=== PATIENT | female | born 1975 | race Caucasian/White ===

== ENCOUNTER 2019-04-29 18:28 | Emergency (ER) | payer OTHER ==
[2019-04-29 18:34] VITALS: TEMP 98.3
--- NOTE | 2019-04-29 19:32 | XR ---
EXAMINATION TYPE: XR knee complete RT DATE OF EXAM: 04/29/2019 COMPARISON: NONE HISTORY: Pain TECHNIQUE: 3 views FINDINGS: I see no fracture nor dislocation. Joint spaces are fairly normal. There is no sign of knee joint effusion. IMPRESSION: Negative right knee exam.
--- NOTE | 2019-04-29 19:42 | ED ---
Extremity Problem HPI - General Chief complaint: Extremity Problem,Nontraumatic Stated complaint: RT leg pain Time Seen by Provider: 04/29/19 19:00 Source: patient Mode of arrival: wheelchair Limitations: no limitations - History of Present Illness Initial comments: Patient is a 44-year-old female presenting to the emergency Department with complaints of right knee pain 2 days. Patient states the pain is increasing over the last few days. Patient denies any trauma or falls to the right knee. Patient states no previous history of surgeries or injuries to the right knee. Patient describes the pain as an left front of her knee and she is unable to bend the knee. Patient is also complaining of a sore inside the her bottom lip. She states she recently had cavities filled and ever since then the inside of her lip has been hurting. Patient states she noticed a small sore there today as well. - Related Data Previous Rx's Medication Instructions Recorded Ibuprofen 600 mg PO Q8HR PRN 5 Days #20 04/29/19 tablet Lidocaine Viscous 2% [Xylocaine 5 ml MUCOUS MEM Q4-6H PRN 5 Days 04/29/19 Viscous] #50 ml Allergies Allergy/AdvReac Type Severity Reaction Status Date / Time No Known Allergies Allergy Verified 04/29/19 18:34 Review of Systems ROS Statement: Those systems with pertinent positive or pertinent negative responses have been documented in the HPI. ROS Other: All systems not noted in ROS Statement are negative. Past Medical History Past Medical History: Diabetes Mellitus, Thyroid Disorder History of Any Multi-Drug Resistant Organisms: None Reported Past Surgical History: Cholecystectomy Past Psychological History: No Psychological Hx Reported Smoking Status: Never smoker Past Alcohol Use History: None Reported Past Drug Use History: None Reported General Exam - General Exam Comments Initial Comments: GENERAL: Well-appearing, well-nourished and in no acute distress. HEAD: Atraumatic, normocephalic. EYES: Pupils equal round and reactive to light, extraocular movements intact, sclera anicteric, conjunctiva are normal. ENT: TMs normal, nares patent, oropharynx clear without exudates. Moist mucous membranes. There is a small skin tear on the inside of the bottom lip. NECK: Normal range of motion, supple without lymphadenopathy or JVD. LUNGS: Breath sounds clear to auscultation bilaterally and equal. No wheezes rales or rhonchi. HEART: Regular rate and rhythm without murmurs, rubs or gallops. ABDOMEN: Soft, nontender, normoactive bowel sounds. No guarding, no rebound. No masses appreciated. : Deferred EXTREMITIES: Patient is unable to flex right knee. Pain to palpation on the anterior aspect of the knee, from the tibia tuberosity up to the quadricep muscle. No erythema or signs of infection. NEUROLOGICAL: Cranial nerves II through XII grossly intact. Normal speech, normal gait. PSYCH: Normal mood, normal affect. SKIN: Warm, Dry, normal turgor, no rashes or lesions noted. Limitations: no limitations Course Vital Signs 04/29/19 18:31 Temperature 98.3 F Pulse Rate 104 H Respiratory 18 Rate Blood Pressure 148/84 O2 Sat by Pulse 98 Oximetry Medical Decision Making - Medical Decision Making Patient is a 44-year-old female complaining of right knee pain 3 days and a sore on her gumline one week. Patient denies any trauma to the right knee. Patient denies any previous injuries of the right knee. Patient had recent dental procedures been having lower lip pain since then. On exam patient is unable to flex her right knee. No signs of infection. X-ray reveals no acute findings. Patient has small skin tear inside of her bottom lip, most likely related to trauma of her dental procedure. Patient will be given a lidocaine mouthwash to help with the pain will follow up with her dentist. Patient be given orthopedic consult for her right knee pain. Disposition Clinical Impression: Right knee pain, Sore of lower lip Disposition: HOME SELF-CARE Condition: Stable Instructions (If sedation given, give patient instructions): Knee Pain (ED) Additional Instructions: Please return to the Emergency Department if symptoms worsen or any other concerns. Follow-up with orthopedics in one to 3 days if pain continues. Follow-up with dentist in one to 3 days if pain continues. Prescriptions: Ibuprofen 600 mg PO Q8HR PRN 5 Days #20 tablet PRN Reason: Pain Lidocaine Viscous 2% [Xylocaine Viscous] 5 ml MUCOUS MEM Q4-6H PRN 5 Days #50 ml PRN Reason: Pain Is patient prescribed a controlled substance at d/c from ED?: No Referrals: None,Stated [Primary Care Provider] - 1-2 days Noe Lynch DO [Medical Doctor] - 1-2 days
[2019-04-29 20:38] VITALS: BP 133/90; PULSE 94; RESP 16
== END 2019-04-29 20:38 | disposition home or self-care (01) ==
LOC: EC 18:28
DX: M25.561 Pain in right knee (principal); K13.79 Other lesions of oral mucosa
CPT/HCPCS: 99283

== ENCOUNTER 2019-06-01 13:23 | Emergency (ER) | payer OTHER ==
[2019-06-01 13:36] VITALS: TEMP 98.2
--- NOTE | 2019-06-01 14:49 | ED ---
Upper Extremity HPI - General Chief Complaint: Extremity Injury, Upper Stated Complaint: Wrist injury Time Seen by Provider: 06/01/19 14:28 Source: patient Mode of arrival: wheelchair Limitations: physical limitation - History of Present Illness Initial Comments: Patient is a 44-year-old female who presents emergency Department with complaints of right wrist pain 2 weeks. Patient states she fell onto her right wrist approximately 2 weeks ago bending her wrist backwards. Patient states she went to the [facility] and did have x-rays the wrist. There were no fracture seen at the time and put her into a removable splint. They suggested her to follow up if she still having pain in 1 to 2 weeks, so she came to the ER today because she is still having pain in that wrist. Patient has not been taking anything for the pain. Patient is right-hand dominant. Patient denies fever, chills, numbness, tingling into the right hand. No other complaints at this time. - Related Data Home Medications Medication Instructions Recorded Confirmed Cetirizine HCl [Zyrtec] 10 mg PO DAILY 06/01/19 06/01/19 Levothyroxine Sodium [Synthroid] 50 mcg PO DAILY 06/01/19 06/01/19 Naproxen [Naprosyn] 500 mg PO BID 06/01/19 06/01/19 metFORMIN HCL [Glucophage] 1,000 mg PO BID 06/01/19 06/01/19 Allergies Allergy/AdvReac Type Severity Reaction Status Date / Time No Known Allergies Allergy Verified 06/01/19 13:36 Review of Systems ROS Statement: Those systems with pertinent positive or pertinent negative responses have been documented in the HPI. ROS Other: All systems not noted in ROS Statement are negative. Past Medical History Past Medical History: Diabetes Mellitus, Thyroid Disorder History of Any Multi-Drug Resistant Organisms: None Reported Past Surgical History: Cholecystectomy Past Psychological History: No Psychological Hx Reported Smoking Status: Never smoker Past Alcohol Use History: None Reported Past Drug Use History: None Reported General Exam - General Exam Comments Initial Comments: GENERAL: Well-appearing, well-nourished and in no acute distress. HEAD: Atraumatic, normocephalic. EYES: Pupils equal round and reactive to light, extraocular movements intact, sclera anicteric, conjunctiva are normal. ENT: TMs normal, nares patent, oropharynx clear without exudates. Moist mucous membranes. NECK: Normal range of motion, supple without lymphadenopathy or JVD. LUNGS: Breath sounds clear to auscultation bilaterally and equal. No wheezes rales or rhonchi. HEART: Regular rate and rhythm without murmurs, rubs or gallops. ABDOMEN: Soft, nontender, normoactive bowel sounds. No guarding, no rebound. No masses appreciated. : Deferred EXTREMITIES: Pain with palpation of the right wrist, lateral aspect, near the anatomical snuffbox and distal radius. Patient has decreased flexion and extension as well as painful supination. No erythema, swelling, deformity seen. NEUROLOGICAL: Cranial nerves II through XII grossly intact. Normal speech, normal gait. PSYCH: Normal mood, normal affect. SKIN: Warm, Dry, normal turgor, no rashes or lesions noted. Limitations: physical limitation Course Vital Signs 06/01/19 13:33 Temperature 98.2 F Pulse Rate 95 Respiratory 18 Rate Blood Pressure 119/82 O2 Sat by Pulse 97 Oximetry Medical Decision Making - Medical Decision Making Patient is a 44-year-old female presenting with right wrist pain 2 weeks. Patient states she fell onto her wrist 2 weeks ago, went to [facility] and had x-rays a same day. There is no fracture seen on those x-rays patient stated however they said to return to the ER if she is still having pain. On exam patient has tenderness around the scaphoid area and distal radius. Patient has decreased range of motion. On x-rays today, there are no acute fractures or dislocations. Discussed with patient this is most likely a sprain. We discussed range of motion exercises and patient will be discharged home. Patient is okay with this plan and is ready to go home. Return parameters were discussed with the patient and she verbalized understanding. Case was discussed with Dr. Allen. Disposition Clinical Impression: Right wrist sprain Disposition: HOME SELF-CARE Condition: Stable Instructions (If sedation given, give patient instructions): Wrist Sprain (ED) Additional Instructions: Please return to the Emergency Department if symptoms worsen or any other concerns. Is patient prescribed a controlled substance at d/c from ED?: No Referrals: Nonstaff,Physician [Primary Care Provider] - 1-2 days
--- NOTE | 2019-06-01 15:07 | XR ---
EXAMINATION TYPE: XR wrist complete RT DATE OF EXAM: 06/01/2019 CLINICAL HISTORY: Fall injury 2 weeks ago with pain. TECHNIQUE: Frontal, lateral, scaphoid, and oblique images of the right wrist are obtained. COMPARISON: None FINDINGS: There is no acute fracture/dislocation evident in the right wrist. The joint spaces in th e right wrist appear within normal limits. The overlying soft tissue appears unremarkable. IMPRESSION: There is no acute fracture or dislocation in the right wrist.
[2019-06-01 15:47] VITALS: BP 134/87; PULSE 79; RESP 16
== END 2019-06-01 15:50 | disposition home or self-care (01) ==
LOC: EC 13:23
DX: S63.501A Unspecified sprain of right wrist, initial encounter (principal); E11.9 Type 2 diabetes mellitus without complications; E07.9 Disorder of thyroid, unspecified; Z79.1 Long term (current) use of non-steroidal anti-inflammatories (NSAID); Z79.84 Long term (current) use of oral hypoglycemic drugs; Z79.890 Hormone replacement therapy; Z79.899 Other long term (current) drug therapy; W19.XXXA Unspecified fall, initial encounter
CPT/HCPCS: 99283

== ENCOUNTER 2019-09-25 17:19 | Emergency (ER) | payer OTHER ==
[2019-09-25 17:24] VITALS: BP 131/86; PULSE 95; TEMP 97.6
--- NOTE | 2019-09-25 18:24 | XR ---
EXAMINATION TYPE: XR knee complete RT DATE OF EXAM: 09/25/2019 COMPARISON: 04/29/2019 HISTORY: Knee pain TECHNIQUE: 3 views FINDINGS: There is minor spurring of the medial femoral and tibial condyles. I see no fracture nor di slocation. There is mild spurring on the patella. IMPRESSION: Minimal degenerative spurring without significant joint space narrowing. No significant c hange compared to old exam.
--- NOTE | 2019-09-25 18:27 | ED ---
Fall HPI - General Chief Complaint: Fall Stated Complaint: Fell leg injury Time Seen by Provider: 09/25/19 17:20 Source: patient Mode of arrival: wheelchair - History of Present Illness Initial Comments: 44-year-old female presenting for right anterior knee pain. Patient states she is walking the dark when she tripped and to a small hole falling onto the right anterior knee. Patient denies dislocation. Patient states the pain began today after walking on the right knee in the anterior aspect of her knee. Patient denies numbness tingling or loss sensation or bruising. Patient denies injury to head neck back or any other extremities. Patient states she is able to ambulate remaining review of systems negative denies any other areas of injury. Patient appears well upon arrival - Related Data Home Medications Medication Instructions Recorded Confirmed Cetirizine HCl [Zyrtec] 10 mg PO DAILY 06/01/19 06/01/19 Levothyroxine Sodium [Synthroid] 50 mcg PO DAILY 06/01/19 06/01/19 Naproxen [Naprosyn] 500 mg PO BID 06/01/19 06/01/19 metFORMIN HCL [Glucophage] 1,000 mg PO BID 06/01/19 06/01/19 Allergies Allergy/AdvReac Type Severity Reaction Status Date / Time No Known Allergies Allergy Verified 09/25/19 17:24 Review of Systems ROS Statement: Those systems with pertinent positive or pertinent negative responses have been documented in the HPI. ROS Other: All systems not noted in ROS Statement are negative. Past Medical History Past Medical History: Diabetes Mellitus, Thyroid Disorder History of Any Multi-Drug Resistant Organisms: None Reported Past Surgical History: Cholecystectomy Past Psychological History: No Psychological Hx Reported Smoking Status: Never smoker Past Alcohol Use History: None Reported Past Drug Use History: None Reported General Exam - General Exam Comments Initial Comments: General: The patient is awake and alert, in no distress Eye: +3 mm pupils are equal, round and reactive to light, extra-ocular mo vements are intact. No nystagmus. There is normal conjunctiva bilaterally. No signs of icterus. Ears, nose, mouth and throat: There are moist mucous membranes and no oral lesions. Neck: The neck is supple, there is no tenderness or JVD. Cardiovascular: There is a regular rate and rhythm. No murmur, rub or gallop is appreciated. Respiratory: Lungs are clear to auscultation, respirations are non-labored, breath sounds are equal. No wheezes, stridor, rales, or rhonchi. Musculoskeletal: Upon inspection of the knees bilaterally there is a small superficial abrasion of the right knee. No bruising is noted soft tissue swelling. Patient is pain to the anterior aspect. No patellar apprehension. No gross deformity. +2 dorsalis pedis pulses bilaterally. Compartments are soft and compressible. Extensor mechanism intact. Sensation intact for possible distal to area of complaint. Neurological: A&O x 3. CN II-XII intact grossly, There are no obvious motor or sensory deficits. Coordination appears grossly intact. Speech is normal. Skin: Skin is warm and dry and no rashes or lesions are noted. Psychiatric: Cooperative, appropriate mood & affect, normal judgment. Limitations: no limitations Course Vital Signs 09/25/19 09/25/19 17:21 18:30 Temperature 97.6 F Pulse Rate 95 Respiratory 18 20 Rate Blood Pressure 131/86 O2 Sat by Pulse 96 Oximetry Medical Decision Making - Medical Decision Making 44-year-old female presented for anterior knee pain after fall. No history of dislocation. Patient neurovascularly intact. Small superficial abrasion. Imaging studies negative for acute osseous process. She is able to appears well. At this time I feel patient is stable for discharge with outpatient primary care follow-up and lolita instruction patient is agreeable this care plan discharge at this time. Disposition Clinical Impression: Abrasion of right knee, Fall Disposition: HOME SELF-CARE Condition: Good Instructions (If sedation given, give patient instructions): Abrasion (ED) Additional Instructions: Please use medication as discussed. Please follow-up with family doctor in the next 2 days.. Please return to emergency room if the symptoms increase or worsen or for any other concerns. Is patient prescribed a controlled substance at d/c from ED?: No Referrals: None,Stated [Primary Care Provider] - 1-2 days Time of Disposition: 18:27
[2019-09-25 18:34] VITALS: RESP 20
== END 2019-09-25 18:30 | disposition home or self-care (01) ==
LOC: EC 17:19
DX: S80.211A Abrasion, right knee, initial encounter (principal); E11.9 Type 2 diabetes mellitus without complications; E07.9 Disorder of thyroid, unspecified; Z79.890 Hormone replacement therapy; Z79.84 Long term (current) use of oral hypoglycemic drugs; W01.0XXA Fall on same level from slipping, tripping and stumbling without subsequent striking against object, initial encounter; Y93.01 Activity, walking, marching and hiking; Y92.096 Garden or yard of other non-institutional residence as the place of occurrence of the external cause
CPT/HCPCS: 99283

== ENCOUNTER 2019-12-30 19:18 | Emergency (ER) | payer OTHER ==
[2019-12-30 20:03] LABS: Glucose,Whole Blood 359 mg/dL (75-99)
[2019-12-30] MEDS ORDERED: SODIUM CHLORIDE 0.9% 1,000 ML IV STA (20:32)
[2019-12-30] MEDS ORDERED: SODIUM CHLORIDE 0.9% 500 ML 500 ML IV STA ×2 (20:55→22:27)
[2019-12-30 21:16] LABS: Appearance,Urine Clear (Clear); Bilirubin,Urine Negative (Negative); Blood,Urine Negative (Negative); Color,Urine Light Yellow; Glucose,Urine (UA) 4+ (Negative); Ketones,Urine Negative (Negative); Leukocyte Esterase,Urine Negative (Negative); Nitrite,Urine Negative (Negative); PH, Urine 6.5 (5.0-8.0); Protein,Urine Negative (Negative); Specific Gravity,Urine 1.028 (1.001-1.035); Urobilinogen,Urine <2.0 mg/dL (<2.0)
[2019-12-30 21:21] LABS: ALT 17 U/L (4-34); AST 21 U/L (14-36); African American GFR (CKD) >90 (>60 ml/min/1.73 sqM); Albumin 4.3 g/dL (3.5-5.0); Alkaline Phosphatase 164 U/L (38-126); Anion Gap 11 mmol/L; Blood Urea Nitrogen 13 mg/dL (7-17); Calcium 9.8 mg/dL (8.4-10.2); Carbon Dioxide 27 mmol/L (22-30); Chloride 95 mmol/L (98-107); Glucose 342 mg/dL (74-99); Non-African American GFR(CKD) >90 (>60 ml/min/1.73 sqM); Potassium 4.1 mmol/L (3.5-5.1); Sodium 133 mmol/L (137-145); Total Bilirubin 0.4 mg/dL (0.2-1.3); Total Protein 7.7 g/dL (6.3-8.2)
[2019-12-30 21:24] LABS: Basophils # (A) 0.1 k/uL (0-0.2); Basophils % (A) 1 %; Eosinophils # (A) 0.2 k/uL (0-0.7); Eosinophils % (A) 3 %; HCT 42.5 % (34.0-46.0); Lymphocytes # (A) 2.2 k/uL (1.0-4.8); Lymphocytes % (A) 23 %; MCV 81.9 fL (80.0-100.0); Monocytes # (A) 0.3 k/uL (0-1.0); Monocytes % (A) 3 %; Neutrophils # (A) 6.7 k/uL (1.3-7.7); Neutrophils % (A) 69 %; Platelet Count 318 k/uL (150-450); RBC 5.19 m/uL (3.80-5.40); RDW 14.7 % (11.5-15.5); WBC 9.7 k/uL (3.8-10.6)
--- NOTE | 2019-12-30 22:24 | ED ---
General Adult HPI - General Chief complaint: Recheck/Abnormal Lab/Rx Stated complaint: High Blood Sugar Time Seen by Provider: 12/30/19 20:19 Source: patient, RN notes reviewed Mode of arrival: ambulatory Limitations: no limitations - History of Present Illness Initial comments: 44-year-old female with a past medical history of diabetes mellitus, thyroid disorder presents to the emergency department for hyperglycemia. Patient states she was feeling a little lightheaded today and checked her glucose and it was in the high 300s. Patient states that this is much her the normal for her. States that she was on metformin twice a day which she stopped taking 4 months ago. Patient stopped taking this because she moved and cannot get an appointment with a new doctor until next month. She states this will be in about 2-3 weeks. Patient is denying any other complaints. Denies any cough congestion sore throat or abdominal pain dysuria. Denies fevers or chills.Patient has no other complaints at this time including shortness of breath, chest pain, abdominal pain, nausea or vomiting, headache, or visual changes. - Related Data Home Medications Medication Instructions Recorded Confirmed Cetirizine HCl [Zyrtec] 10 mg PO DAILY 06/01/19 06/01/19 Levothyroxine Sodium [Synthroid] 50 mcg PO DAILY 06/01/19 06/01/19 Naproxen [Naprosyn] 500 mg PO BID 06/01/19 06/01/19 metFORMIN HCL [Glucophage] 1,000 mg PO BID 06/01/19 06/01/19 Previous Rx's Medication Instructions Recorded RX: metFORMIN HCL [Glucophage] 500 mg PO BID #60 tab 12/30/19 Allergies Allergy/AdvReac Type Severity Reaction Status Date / Time No Known Allergies Allergy Verified 12/30/19 19:27 Review of Systems ROS Statement: Those systems with pertinent positive or pertinent negative responses have been documented in the HPI. ROS Other: All systems not noted in ROS Statement are negative. Past Medical History Past Medical History: Diabetes Mellitus, Thyroid Disorder History of Any Multi-Drug Resistant Organisms: None Reported Past Surgical History: Cholecystectomy Past Psychological History: No Psychological Hx Reported Smoking Status: Never smoker Past Alcohol Use History: None Reported Past Drug Use History: None Reported General Exam Limitations: no limitations General appearance: alert, in no apparent distress Head exam: Present: atraumatic, normocephalic, normal inspection Eye exam: Present: normal appearance, PERRL, EOMI. Absent: scleral icterus, conjunctival injection, periorbital swelling ENT exam: Present: normal exam, mucous membranes moist Neck exam: Present: normal inspection, full ROM. Absent: tenderness, meningi smus, lymphadenopathy Respiratory exam: Present: normal lung sounds bilaterally. Absent: respiratory distress, wheezes, rales, rhonchi, stridor Cardiovascular Exam: Present: regular rate, normal rhythm, normal heart sounds. Absent: systolic murmur, diastolic murmur, rubs, gallop, clicks GI/Abdominal exam: Present: soft, normal bowel sounds. Absent: distended, tenderness, guarding, rebound, rigid Neurological exam: Present: alert, oriented X3, CN II-XII intact, normal gait Course Vital Signs 12/30/19 12/30/19 19:25 22:28 Temperature 98.5 F 97.6 F Pulse Rate 101 H 94 Respiratory 20 19 Rate Blood Pressure 167/80 118/82 O2 Sat by Pulse 94 L 95 Oximetry Medical Decision Making - Medical Decision Making Vitals are stable. Patient initially mildly tachycardic however this did improve. Possibly secondary to dehydration as well. CBC CMP generally unremarkable. No evidence of significant acidosis. Glucose 359. This did improve thru patient stay with 2 L of fluids as well as insulin. Glucose 4+ and urine which is likely causing dehydration accounting for patient's symptoms. Again we did rehydrate patient here in the emergency department. I discussed this case with Dr. Garcia. This time recommends ascribing patient metformin on an outpatient basis until she can get in to see her doctor. I will write prescription for 1 month. Recommend she return here with any worsening symptoms. - Lab Data Result diagrams: 12/30/19 20:52 12/30/19 20:52 Lab Results 12/30/19 12/30/19 12/30/19 Range/Units 20:01 20:52 20:52 WBC 9.7 (3.8-10.6) k/uL RBC 5.19 (3.80-5.40) m/uL Hgb 14.0 (11.4-16.0) gm/dL Hct 42.5 (34.0-46.0) % MCV 81.9 (80.0-100.0) fL MCH 27.0 (25.0-35.0) pg MCHC 33.0 (31.0-37.0) g/dL RDW 14.7 (11.5-15.5) % Plt Count 318 (150-450) k/uL Neutrophils % 69 % Lymphocytes % 23 % Monocytes % 3 % Eosinophils % 3 % Basophils % 1 % Neutrophils # 6.7 (1.3-7.7) k/uL Lymphocytes # 2.2 (1.0-4.8) k/uL Monocytes # 0.3 (0-1.0) k/uL Eosinophils # 0.2 (0-0.7) k/uL Basophils # 0.1 (0-0.2) k/uL Sodium 133 L (137-145) mmol/L Potassium 4.1 (3.5-5.1) mmol/L Chloride 95 L (98-107) mmol/L Carbon Dioxide 27 (22-30) mmol/L Anion Gap 11 mmol/L BUN 13 (7-17) mg/dL Creatinine 0.65 (0.52-1.04) mg/dL Est GFR (CKD-EPI)AfAm >90 (>60 ml/min/1.73 sqM) Est GFR (CKD-EPI)NonAf >90 (>60 ml/min/1.73 sqM) Glucose 342 H (74-99) mg/dL POC Glucose (mg/dL) 359 H (75-99) mg/dL POC Glu Athlete Manager ID Tracy Sung Calcium 9.8 (8.4-10.2) mg/dL Total Bilirubin 0.4 (0.2-1.3) mg/dL AST 21 (14-36) U/L ALT 17 (4-34) U/L Alkaline Phosphatase 164 H (38-126) U/L Total Protein 7.7 (6.3-8.2) g/dL Albumin 4.3 (3.5-5.0) g/dL Urine Color Urine Appearance (Clear) Urine pH (5.0-8.0) Ur Specific Lester (1.001-1.035) Urine Protein (Negative) Urine Glucose (UA) (Negative) Urine Ketones (Negative) Urine Blood (Negative) Urine Nitrite (Negative) Urine Bilirubin (Negative) Urine Urobilinogen (<2.0) mg/dL Ur Leukocyte Esterase (Negative) Urine HCG, Qual (Not Detectd) Acetone, Qual Negative (Negative) Influenza Type A RNA (Not Detectd) Influenza Type B (PCR) (Not Detectd) 12/30/19 12/30/19 12/30/19 Range/Units 20:52 20:52 20:52 WBC (3.8-10.6) k/uL RBC (3.80-5.40) m/uL Hgb (11.4-16.0) gm/dL Hct (34.0-46.0) % MCV (80.0-100.0) fL MCH (25.0-35.0) pg MCHC (31.0-37.0) g/dL RDW (11.5-15.5) % Plt Count (150-450) k/uL Neutrophils % % Lymphocytes % % Monocytes % % Eosinophils % % Basophils % % Neutrophils # (1.3-7.7) k/uL Lymphocytes # (1.0-4.8) k/uL Monocytes # (0-1.0) k/uL Eosinophils # (0-0.7) k/uL Basophils # (0-0.2) k/uL Sodium (137-145) mmol/L Potassium (3.5-5.1) mmol/L Chloride (98-107) mmol/L Carbon Dioxide (22-30) mmol/L Anion Gap mmol/L BUN (7-17) mg/dL Creatinine (0.52-1.04) mg/dL Est GFR (CKD-EPI)AfAm (>60 ml/min/1.73 sqM) Est GFR (CKD-EPI)NonAf (>60 ml/min/1.73 sqM) Glucose (74-99) mg/dL POC Glucose (mg/dL) (75-99) mg/dL POC Glu Athlete Manager ID Calcium (8.4-10.2) mg/dL Total Bilirubin (0.2-1.3) mg/dL AST (14-36) U/L ALT (4-34) U/L Alkaline Phosphatase (38-126) U/L Total Protein (6.3-8.2) g/dL Albumin (3.5-5.0) g/dL Urine Color Light Yellow Urine Appearance Clear (Clear) Urine pH 6.5 (5.0-8.0) Ur Specific Lester 1.028 (1.001-1.035) Urine Protein Negative (Negative) Urine Glucose (UA) 4+ H (Negative) Urine Ketones Negative (Negative) Urine Blood Negative (Negative) Urine Nitrite Negative (Negative) Urine Bilirubin Negative (Negative) Urine Urobilinogen <2.0 (<2.0) mg/dL Ur Leukocyte Esterase Negative (Negative) Urine HCG, Qual Not Detected (Not Detectd) Acetone, Qual (Negative) Influenza Type A RNA Not Detected (Not Detectd) Influenza Type B (PCR) Not Detected (Not Detectd) 12/30/19 12/30/19 12/30/19 Range/Units 22:26 23:09 23:33 WBC (3.8-10.6) k/uL RBC (3.80-5.40) m/uL Hgb (11.4-16.0) gm/dL Hct (34.0-46.0) % MCV (80.0-100.0) fL MCH (25.0-35.0) pg MCHC (31.0-37.0) g/dL RDW (11.5-15.5) % Plt Count (150-450) k/uL Neutrophils % % Lymphocytes % % Monocytes % % Eosinophils % % Basophils % % Neutrophils # (1.3-7.7) k/uL Lymphocytes # (1.0-4.8) k/uL Monocytes # (0-1.0) k/uL Eosinophils # (0-0.7) k/uL Basophils # (0-0.2) k/uL Sodium (137-145) mmol/L Potassium (3.5-5.1) mmol/L Chloride (98-107) mmol/L Carbon Dioxide (22-30) mmol/L Anion Gap mmol/L BUN (7-17) mg/dL Creatinine (0.52-1.04) mg/dL Est GFR (CKD-EPI)AfAm (>60 ml/min/1.73 sqM) Est GFR (CKD-EPI)NonAf (>60 ml/min/1.73 sqM) Glucose (74-99) mg/dL POC Glucose (mg/dL) 349 H 318 H 296 H (75-99) mg/dL POC Glu Athlete Manager Effie Kelley Ashley Barr, Ashley Calcium (8.4-10.2) mg/dL Total Bilirubin (0.2-1.3) mg/dL AST (14-36) U/L ALT (4-34) U/L Alkaline Phosphatase (38-126) U/L Total Protein (6.3-8.2) g/dL Albumin (3.5-5.0) g/dL Urine Color Urine Appearance (Clear) Urine pH (5.0-8.0) Ur Specific Lester (1.001-1.035) Urine Protein (Negative) Urine Glucose (UA) (Negative) Urine Ketones (Negative) Urine Blood (Negative) Urine Nitrite (Negative) Urine Bilirubin (Negative) Urine Urobilinogen (<2.0) mg/dL Ur Leukocyte Esterase (Negative) Urine HCG, Qual (Not Detectd) Acetone, Qual (Negative) Influenza Type A RNA (Not Detectd) Influenza Type B (PCR) (Not Detectd) Disposition Clinical Impression: Hyperglycemia Disposition: HOME SELF-CARE Condition: Good Instructions (If sedation given, give patient instructions): Diabetic Hyperglycemia (ED) Additional Instructions: Please take metformin as directed. This was prescribed to [facility] in [place]. Plenty of fluids. Follow-up with your doctor as soon as possible. Return to the emergency department if you have any worsening symptoms. Prescriptions: RX: metFORMIN HCL [Glucophage] 500 mg PO BID #60 tab Is patient prescribed a controlled substance at d/c from ED?: No Referrals: Luan Ulloa MD [STAFF PHYSICIAN] - 1-2 days Time of Disposition: 23:45
[2019-12-30] MEDS ORDERED: INSULIN ASPART (NovoLOG) 100 UNIT/ML VIAL SQ STA (22:27)
[2019-12-30 22:30] LABS: Glucose,Whole Blood 349 mg/dL (75-99)
[2019-12-30 22:48] VITALS: RESP 19; TEMP 97.6
[2019-12-30 23:10] LABS: Glucose,Whole Blood 318 mg/dL (75-99)
[2019-12-30] MEDS ORDERED: INSULIN REGULAR 100 UNIT/ML VIAL IV ONE (23:22)
[2019-12-30 23:34] LABS: Glucose,Whole Blood 296 mg/dL (75-99)
[2019-12-30 23:55] LABS: Glucose,Whole Blood 276 mg/dL (75-99)
[2019-12-31 00:05] VITALS: PULSE 92
[2019-12-31 00:07] VITALS: BP 121/69
== END 2019-12-31 00:07 | disposition home or self-care (01) ==
LOC: EC 19:18
DX: E11.65 Type 2 diabetes mellitus with hyperglycemia (principal); R00.0 Tachycardia, unspecified; E86.0 Dehydration; E07.9 Disorder of thyroid, unspecified; Z79.84 Long term (current) use of oral hypoglycemic drugs; Z79.890 Hormone replacement therapy
CPT/HCPCS: 36415; 80053; 81003; 81025; 82009; 85025; 87502; 96360; 96361; 99284

== ENCOUNTER → 2023-10-01 | Outpatient (CLI) | payer OTHER | END | disposition home or self-care (01) | LOC: RADMRIMAIN 17:41 | PROVIDERS: ATTEND Orthopaedic Surgery | DX: Z53.9 Procedure and treatment not carried out, unspecified reason (principal) ==

== ENCOUNTER 2024-02-27 05:41 | Day surgery (SDC) | payer OTHER ==
--- NOTE | 2024-02-26 09:12 | P.HPOR ---
History of Present Illness H&P Date: 02/26/24 Chief Complaint: Left shoulder pain The patient is a 48-year-old female who presents with left shoulder pain and stiffness that began about a year ago worsening over the past 3 months. She is having pain with overhead activity and at night. She's tried anti- inflammatories along with therapy without any significant relief. Review of Systems As per HPI Past Medical History Past Medical History: Diabetes Mellitus, Musculoskeletal Disorder, Thyroid Disorder Additional Past Medical History / Comment(s): not currently taking thyroid med, has run out of a couple meds but couldn't say which ones, recent CT scan shows "spot on liver", lower back pain w/sciatica History of Any Multi-Drug Resistant Organisms: None Reported Past Surgical History: Cholecystectomy Past Anesthesia/Blood Transfusion Reactions: No Reported Reaction Smoking Status: Never smoker Medications and Allergies Home Medications Medication Instructions Recorded Confirmed Type Naproxen [Naprosyn] 500 mg PO BID 06/01/19 01/26/24 History metFORMIN HCL [Glucophage] 1,000 mg PO BID 06/01/19 01/26/24 History Ascorbic Acid [Vitamin C] 500 mg PO DAILY 01/26/24 01/26/24 History Multivitamins, Thera [Multivitamin 1 tab PO DAILY 01/26/24 01/26/24 History (formulary)] Sertraline [Zoloft] 50 mg PO DAILY 01/26/24 01/26/24 History methocarbamoL 750 mg PO Q6H PRN 01/26/24 01/26/24 History Allergies Allergy/AdvReac Type Severity Reaction Status Date / Time No Known Allergies Allergy Verified 01/26/24 10:58 Physical Examination - Shoulder left Tenderness with palpation: anterior, bicipital groove Pain: with abduction, with forward flexion ROM: abduction: 120 degrees ROM: forward flexion: 120 degrees ROM: internal rotation: lower lumbar ROM: external rotation: 30 degrees Crepitus with motion: Yes Tests: internal impingement tests: positive, external impingment tests: positive Results Patient is a well-developed well-nourished female proximal a 5 foot 5, 260 pounds of endomorphic habitus. HEENT exam is nonfocal, neck is supple. She's tender about the left shoulder anterior subacromial space. Moderate crepitus is noted. Active forward elevation 135, passively I'm able to forward elevate her 135. Impingement test, Neer test, speed tests are positive. Her distal neurovascular exam appears intact in the left upper extremity. - Diagnostic results Shoulder MRI: image reviewed (MRI of the left shoulder shows evidence of significant capsulitis along with calcium deposition in the supraspinatus. There is posterior humeral head bone marrow changes.) Assessment and Plan Assessment: Left shoulder adhesive capsulitis Left calcific rotator cuff tendinitis Plan: I talked to the patient at length regarding her condition and treatment options. At this point she continues to be quite symptomatic despite conservative measures. After a thorough discussion she opts to proceed with surgery. We will plan to proceed with left shoulder arthroscopy/subacromial decompression/synovectomy/rotator cuff debridement/manipulation under anesthesia. We will likely perform as an outpatient procedure. Risks and benefits were discussed at length in layman's terms.
[2024-02-26 12:59] VITALS: BMI 48.2
[2024-02-27] MEDS ORDERED: ONDANSETRON 4 MG/2 ML VIAL IVP ONE (05:57)
[2024-02-27] MEDS ORDERED: SCOPOLAMINE 1 MG/72 HR PATCH TRANSDERM ONE (05:57)
[2024-02-27] MEDS ORDERED: LACTATED RINGERS 1,000 ML IV SCH (05:57)
[2024-02-27] MEDS ORDERED: DEXAMETHASONE SOD PHOSPHATE 4 MG/ML 1 ML VIAL IV ONE (05:57)
[2024-02-27] MEDS: LACTATED RINGERS 1,000 ML IV ONE ×2 (06:23→08:54)
[2024-02-27] MEDS: DEXAMETHASONE SOD PHOSPHATE 4 MG/ML 1 ML VIAL IVP ONE (06:25)
[2024-02-27] MEDS: ONDANSETRON 4 MG/2 ML VIAL IVP ONE (06:25)
[2024-02-27 06:36] LABS: Glucose,Whole Blood 166 mg/dL (70-110)
[2024-02-27] MEDS: MIDAZOLAM 2 MG/2 ML VIAL IVP ONE (06:49)
[2024-02-27] MEDS ORDERED: MIDAZOLAM 2 MG/2 ML VIAL IV PRN (07:00)
[2024-02-27] MEDS ORDERED: HYDROmorphone 0.5 MG/0.5 ML SYRINGE IVP PRN (07:00)
[2024-02-27] MEDS: SCOPOLAMINE 1 MG/72 HR PATCH TRANSDERM ONE (07:04)
[2024-02-27] MEDS ORDERED: KETOROLAC 15 MG/ML 1 ML VIAL ONE (07:28)
[2024-02-27] MEDS ORDERED: ROCURONIUM 10 MG/ML (5 ML VIAL) IV ONE (07:28)
[2024-02-27] MEDS ORDERED: LIDOCAINE 2% (PF) 20 MG/ML 5 ML VIAL ONE (07:28)
[2024-02-27] MEDS ORDERED: DEXAMETHASONE SOD PHOSPHATE 4 MG/ML 1 ML VIAL ONE (07:28)
[2024-02-27] MEDS ORDERED: PROPOFOL 10 MG/ML 20 ML VIAL IV ONE (07:28)
[2024-02-27] MEDS ORDERED: MIDAZOLAM 2 MG/2 ML VIAL ONE (07:28)
[2024-02-27] MEDS ORDERED: PHENYLEPHRINE 10 MG/ML VIAL ONE (07:28)
[2024-02-27] MEDS ORDERED: NEOSTIGMINE 1 MG/ML 10 ML VIAL ONE (07:28)
[2024-02-27] MEDS ORDERED: GLYCOPYRROLATE 0.2 MG/ML 2 ML VIAL ONE (07:28)
[2024-02-27] MEDS ORDERED: fentaNYL (PF) 50 MCG/ML 2 ML AMP ONE (07:28)
[2024-02-27] MEDS: ceFAZolin 3 GM in SODIUM CHLORIDE 0.9% 100 ML IVPB PRN (07:28)
[2024-02-27] MEDS ORDERED: ROPIVACAINE 5 MG/ML 30 ML VIAL ONE (07:28)
[2024-02-27] MEDS: EPINEPHrine (PF) 1 ML in SODIUM CHLORIDE 0.9% IRRIGATIO 3,000 ML IRRIGATION ONE ×4 (07:53)
--- NOTE | 2024-02-27 08:02 | P.ANPRN ---
Procedure Note - Anesthesia - Nerve Block Performed Right Interscalene Single Time Out Performed: Yes Date of Procedure: 02/27/24 Procedure Start Time: 06:48 Procedure Stop Time: 06:53 Location of Patient: PreOp Indication: Acute Post-Operative Pain, Analgesia, Requested by Surgeon Sedation Type: Sedate with meaningful contact maintained Preparation: Sterile Prep Position: Sitting Needle Types: Pajunk Needle Gauge: 21 Ultrasound used to visualize needle placement: Yes Ultrasound used to observe medication spread: Yes Injectate: 0.5% Ropivacaine (see comment for volume) (Ropiv 20ml + decadron 4mg) Blood Aspirated: No Pain Paresthesia on Injection Noted: No Resistance on Injection: Normal Image Stored and Saved: Yes Events: Uneventful and Well Tolerated
--- NOTE | 2024-02-27 09:09 | P.OP ---
Date of Procedure: 02/27/24 Preoperative Diagnosis: Left shoulder impingement Postoperative Diagnosis: Same in addition to acromioclavicular joint arthritis high-grade partial- thickness tear bursal surface rotator cuff Procedure(s) Performed: Left shoulder arthroscopic subacromial decompression/rotator cuff repair/distal clavicular resection Implants: Arthrex 5.5 mm swivel lock anchor 1 Anesthesia: [facility] Surgeon: Brandon Whittington Estimated Blood Loss (ml): 10 Pathology: none sent Condition: stable Disposition: PACU Indications for Procedure: The patient's a 48-year-old female who presents with progressive left shoulder pain despite conservative measures. A discussion of the risks and benefits of operative intervention versus continued conservative measures was made with patient. She opted to proceed with surgery. Operative risks to include infection, neurovascular injury, development of blood clots, possible tendon rerupture, possible postoperative stiffness, and possible need for subsequent procedures was discussed. Informed consent was obtained. Operative Findings: As below Description of Procedure: The patient was brought to the operating room, and after induction of general anesthesia was placed in a beachchair position. A preoperative interscalene block was placed for postoperative analgesia. I examined the left shoulder. There was no gross block to passive motion or gross glenohumeral instability. The left upper extremity was prepped and draped in normal fashion. The bony outlines the acromion, distal clavicle, and coracoid process were outlined with a skin marker. The glenohumeral joint was inflated with 50 mL of saline utilizing a spinal needle from posterior approach. A posterior portal was made through a 5 mm skin incision 1 cm medial and inferior to the posterior lateral border time. A blunt trocar was used to easily into the joint. Diagnostic arthroscopy was performed. An anterior portal was made just lateral to the coracoid process entering the joint above the subscapularis tendon. The subscapularis tendon appeared to be intact. Anterior labrum was intact. The inferior recess was inspected. The posterior labrum was intact. The biceps and its anchor appear to be intact. On inspection the rotator cuff, Partial thickness tearing of the anterior aspect the supraspinatus was noted. This involved less than 10% of the tendon thickness. This was debrided back with a motorized shaver to stable base. The arthroscope was then placed into the subacromial space. A lateral portal was made 2 centimeters inferior to the anterior lateral border of the acromion. The soft tissue on the undersurface of the acromion was debrided with a motorized shaver and electrocautery clearly defining the anterior medial and lateral borders as well as the distal clavicle. An anterior inferior acromioplasty was performed with a motorized sujey starting anterolateral, then extending this posteriorly, then extending this medially. I converted to a flat acromion and this was verified in the posterior and lateral viewing portals. The distal clavicle appeared to impinge in the subacromial space. The distal 8 mm of clavicle was resected with a motorized sujey. Significant bursal thickening was noted and was debrided with a motorized shaver. The rotator cuff was inspected. A high-grade partial-thickness tear involving the posterior aspect the supraspinatus was noted measuring approximately 1 cm. This was then taken fully down and the rotator cuff was mobilized. A #2 fiber tape was placed through the rotator cuff with a scorpion suture passer. One lateral anchor was then placed utilizing a 5.5 mm swivel lock anchor. Initial anchor that was placed did not have good purchase, therefore it was removed and placed more anteriorly with good purchase. Final arthroscopic view showed adequate compression at the footprint. The arthroscope was then removed. The portals were closed with simple 3-0 nylon sutures. A sterile dressing was applied in addition to a sling. The patient was then awoken from general anesthesia and transferred to recovery room in good condition. Blood loss was estimated at 10 mL. No complications were incurred. Sponge and needle counts were correct in the case. Raúl BRUNO assisted and the major components of the case to include arm positioning, anchor placement, and rotator cuff repair.
[2024-02-27 09:27] VITALS: RESP 16; TEMP 97
[2024-02-27 10:37] LABS: Glucose,Whole Blood 289 mg/dL (70-110)
[2024-02-27] MEDS: INSULIN ASPART (NovoLOG) 100 UNIT/ML VIAL SQ ONE (10:58)
[2024-02-27 11:33] VITALS: BP 118/57; PULSE 86
[2024-02-27 11:39] LABS: Glucose,Whole Blood 301 mg/dL (70-110)
== END 2024-02-27 11:51 | disposition home or self-care (01) ==
LOC: OR 05:41
PROVIDERS: ATTEND Orthopaedic Surgery
DX: M75.102 Unspecified rotator cuff tear or rupture of left shoulder, not specified as traumatic (principal); M19.012 Primary osteoarthritis, left shoulder; M75.02 Adhesive capsulitis of left shoulder; M25.812 Other specified joint disorders, left shoulder; E11.9 Type 2 diabetes mellitus without complications; E07.9 Disorder of thyroid, unspecified; G89.18 Other acute postprocedural pain; Z90.49 Acquired absence of other specified parts of digestive tract; Z79.84 Long term (current) use of oral hypoglycemic drugs; Z79.899 Other long term (current) drug therapy; Z79.1 Long term (current) use of non-steroidal anti-inflammatories (NSAID)
CPT/HCPCS: 64415; 81025; 29824; 29826; 29827; C1713 ×2; C1894; J2250; J1100; J2710; J0690; J2405; J0171; J3010; J2795; J1885; J2704; J2001; J2371